=== PATIENT | female | born 1955 | race Caucasian/White ===

== ENCOUNTER → 2016-06-20 | Outpatient (CLI) | payer SELFPAY ==
--- NOTE | 2016-06-20 11:49 | CT ---
HISTORY: Pulmonary nodule, hypertension Study: CT chest without contrast Comparison: 12/17/2015 Technique: Multiple axial images of the chest were obtained from the thoracic inlet to the upper abd omen without the administration of IV contrast. Dose reduction techniques including Automated Expos ure Control (AEC) and adjustment of mA and kV were utilized. Findings: Please note evaluation of vascular structures is limited without IV contrast. Normal appearance of the heart and pericardium. The aorta appears normal in course and caliber. The lungs are clear witho ut effusion, consolidation, or pneumothorax. Airways are patent. Redemonstrated pulmonary nodule in the left lower lobe measuring 0.8 x 0.7 cm on today's exam and grossly unchanged compared to 016. The margins of this nodule appear spiculated. No surrounding lesions. The airways are patent. The soft tissues and osseous structures appear intact. The visualized portions of the upper abdomen are grossly unremarkable. IMPRESSION: 1. There is a stable 8 mm left lower lobe pulmonary nodule with unchanged appearance of spiculated margins. No new lesion or significant interval growth. Continued [address] followup is recom mended. 2. No acute abnormality identified. Reported By:
== END ==
LOC: RAD 10:57
PROVIDERS: ATTEND Internal Medicine Pulmonary Disease
DX: R91.1 Solitary pulmonary nodule (principal); I10 Essential (primary) hypertension; E11.9 Type 2 diabetes mellitus without complications
CPT/HCPCS: 71250